=== PATIENT | female | born 1980 | race Caucasian/White ===

== ENCOUNTER 2024-05-01 08:40 | Emergency (ER) | payer OTHER, BC ==
[~2024-05-01] VITALS: Ht 175.3 cm; Wt 88.0 kg
[2024-05-01 10:50] VITALS: BP 130/82
== END 2024-05-01 10:50 | disposition home or self-care (01) ==
LOC: ED 08:40
DX: S01.01XA Laceration without foreign body of scalp, initial encounter (principal); V89.2XXA Person injured in unspecified motor-vehicle accident, traffic, initial encounter; Y92.411 Interstate highway as the place of occurrence of the external cause
CPT/HCPCS: 12002; 36415; 99284; G0480